=== PATIENT | male | born 1960 | race Caucasian/White ===

== ENCOUNTER 2020-12-02 09:32 | Emergency (ER) | payer OTHER ==
[2020-12-02] MEDS ORDERED: Ketorolac 60 MG/2 ML SDV IM ONE (10:08)
--- NOTE | 2020-12-02 10:11 | EDM.PDOC ---
ED HPI GENERAL MEDICAL PROBLEM - General Chief Complaint: Flank Pain Stated Complaint: PAIN IN ABDOMEN Time Seen by Provider: 12/02/20 10:04 Source of Information: Reports: Patient, Family, RN Notes Reviewed History Limitations: Reports: No Limitations - History of Present Illness INITIAL COMMENTS - FREE TEXT/NARRATIVE: 60-year-old gentleman presents emergency department day complaint of left flank pain, he states it started 4 days ago initially in his back was very intense but now has progressed down into his left flank there is a bit of waxing and waning does get very sharp at times no nausea no vomiting no other GI symptomology is no chest pain no shortness of breath does have a history of nephrolithiasis as well as testicular cancer Left Flank Pain Score (Numeric/FACES): 10 - Related Data Allergies Allergy/AdvReac Type Severity Reaction Status Date / Time No Known Allergies Allergy Verified 12/02/20 09:54 Home Meds: Home Meds Gabapentin [Neurontin] 1,200 mg PO BEDTIME 12/02/20 [History] Gabapentin [Neurontin] 600 mg PO BID 12/02/20 [History] Hydrocodone/Acetaminophen [Hydrocodon-Acetaminophen 5-325] 1 each PO Q4HR 12/02/20 [History] Hydrocodone/Acetaminophen [Hydrocodon-Acetaminophen 5-325] 1 each PO TID PRN #10 tablet 12/02/20 [Rx] Ketorolac [Toradol] 10 mg PO TID PRN #20 tab 12/02/20 [Rx] Past Medical History Genitourinary History: Reports: Renal Calculus Musculoskeletal History: Reports: Fracture Hematologic History: Reports: None Immunologic History: Reports: None Oncologic (Cancer) History: Reports: Other (See Below) Other Oncologic History: testicle Dermatologic History: Reports: None - Infectious Disease History Infectious Disease History: Reports: Chicken Pox - Past Surgical History HEENT Surgical History: Reports: None GI Surgical History: Reports: Other (See Below) Other GI Surgeries/Procedures: teratatoma Male Surgical History: Reports: Other (See Below) Other Male Surgeries/Procedures: Right testicular cancer with testicle removal Neurological Surgical History: Reports: Lumbar Spine Social & Family History - Tobacco Use Tobacco Use Status *Q: Former Tobacco User Used Tobacco, but Quit: Yes Month/Year Tobacco Last Used: 2004 - Caffeine Use Caffeine Use: Reports: Coffee - Recreational Drug Use Recreational Drug Use: No ED ROS GENERAL - Review of Systems Review Of Systems: See Below Constitutional: Reports: No Symptoms Respiratory: Reports: Other (Hurts to take a deep breath) Cardiovascular: Reports: No Symptoms GI/Abdominal: Reports: Abdominal Pain. Denies: Nausea, Vomiting : Reports: Flank Pain (Left flank) ED EXAM, GI/ABD - Physical Exam Exam: See Below Exam Limited By: No Limitations General Appearance: Alert, WD/WN, No Apparent Distress Respiratory/Chest: No Respiratory Distress, Lungs Clear, Normal Breath Sounds, No Accessory Muscle Use, Chest Non-Tender Cardiovascular: Regular Rate, Rhythm, No Murmur GI/Abdominal Exam: Soft, Tender (Tender along the left flank) Back Exam: CVA Tenderness (L) Course - Vital Signs Last Recorded V/S: Last Vital Signs Temp 97.9 F 12/02/20 09:45 Pulse 71 12/02/20 10:46 Resp 16 12/02/20 10:46 BP 144/70 H 12/02/20 10:46 Pulse Ox 96 12/02/20 10:46 - Orders/Labs/Meds Labs: Laboratory Tests 12/02/20 Range/Units 10:07 Urine Color Yellow (YELLOW) Urine Appearance Clear (CLEAR) Urine pH 6.0 (5.0-8.0) Ur Specific [place] 1.025 (1.008-1.030) Urine Protein Negative (NEGATIVE) mg/dL Urine Glucose (UA) Negative (NEGATIVE) mg/dL Urine Ketones Negative (NEGATIVE) mg/dL Urine Occult Blood Trace-lysed H (NEGATIVE) Urine Nitrite Negative (NEGATIVE) Urine Bilirubin Negative (NEGATIVE) Urine Urobilinogen 0.2 (0.2-1.0) EU/dL Ur Leukocyte Esterase Negative (NEGATIVE) Urine RBC 0-5 (0-5) Urine WBC 0-5 (0-5) Ur Epithelial Cells Not seen Amorphous Sediment Rare Urine Bacteria Rare Urine Mucus Not seen Meds: Medications Discontinued Medications Generic Name Dose Route Start Last Admin Trade Name Freq PRN Reason Stop Dose Admin Ketorolac Tromethamine 60 mg 12/02/20 10:08 12/02/20 10:14 Ketorolac 60 Mg/2 Ml Sdv IM 12/02/20 10:09 60 mg ONETIME ONE Administration Departure - Departure Time of Disposition: 11:49 Disposition: Home, Self-Care 01 Condition: Fair Clinical Impression: Nephrolithiasis - Discharge Information Prescriptions: Hydrocodone/Acetaminophen [Hydrocodon-Acetaminophen 5-325] 1 each PO TID PRN #10 tablet PRN Reason: Pain Ketorolac [Toradol] 10 mg PO TID PRN #20 tab PRN Reason: Pain Instructions: Kidney Stones Referrals: PCP,None [Primary Care Provider] - Forms: ED Department Discharge Additional Instructions: Use ketorolac for your baseline pain control use hydrocodone for breakthrough pain, please contact your primary care at [facility] today and set up a consultation with urology for stone removal in the future your Toradol has been faxed to [facility] the narcotic is in prescription form call return to the emergency department worsening of symptoms Sepsis Event Note (ED) - Evaluation Sepsis Screening Result: No Definite Risk - Focused Exam Vital Signs: Vital Signs Temp Pulse Resp BP Pulse Ox 12/02/20 10:46 71 16 144/70 H 96 12/02/20 09:45 97.9 F 72 16 183/83 H 97 - Assessment/Plan Plan: Assessment Acuity = acute Site and laterality = 9 mm obstructing stone left ureter Etiology = unknown Manifestations = pain Location of injury = Home Lab values = CT scan describes the stone above Plan I did review CT scan results with him provided a copy of the report as well as the CD disc of the images he is going to contact his primary care at [facility] and get a consultation with urology set up with her in the [facility] provided hydrocodone 5/325 1 tab p.o. 3 times daily as needed 1210 in combination with ketorolac 10 mg 1 tab p.o. 3 times daily as needed total #20 This note was dictated using [employer] voice recognition software please call with any questions on syntax or grammar.
--- NOTE | 2020-12-02 11:28 | CRLCT ---
For Patients: As a result of the Century Cures Act, medical imaging exams and procedure reports are released immediately into your electronic medical record. You may view this report before your referring provider. If you have questions, please contact your health care provider. INDICATION: Left flank pain. Hematuria. History of testicular cancer in 2004. COMPARISON: None. TECHNIQUE: CT abdomen and pelvis without contrast. FINDINGS: Linear right basilar subsegmental atelectasis/scarring. Faint tree-in-bud opacities in the left lower lobe could be due to infectious/inflammatory bronchiolitis. Hepatic steatosis and hepatomegaly. Calcified granulomas in the liver and spleen. Noncontrast evaluation of the gallbladder, pancreas and adrenal glands are unremarkable. Obstructing left calculus at the UPJ with moderate left hydronephrosis and perinephric stranding. The calculus measures 9 mm (series 2, image 1 or 2). Right kidney is unremarkable. Abdominal aorta is normal in caliber. Hernia repair changes. Prostate enlargement. Bladder is nondistended. No free fluid or free air. Diverticulosis. Negative appendix. Surgical clips in the retroperitoneum likely from prior lymph node dissection. No evidence of bowel obstruction or inflammation. Change of corpectomy with lateral metallic strut in the lumbar spine. L5 vertebra body hemangioma. IMPRESSION: 1. Obstructing left renal calculus at the UPJ with moderate left hydronephrosis and perinephric stranding. 2. Hepatic steatosis and hepatomegaly. 3. Faint tree-in-bud opacities in the left lower lobe could be infectious/inflammatory bronchiolitis. 4. Diverticulosis. 5. Postsurgical changes in the lumbar spine. 6. Prostate enlargement. Please note that all CT scans at this facility use dose modulation, iterative reconstruction, and/or weight-based dosing when appropriate to reduce radiation dose to as low as reasonably achievable. Dictated by Vince Chery MD @ 12/02/2020 11:27:[address] Vince Chery @ Dec 02 2020 11:27AM
== END 2020-12-02 12:23 | disposition home or self-care (01) ==
LOC: JP.ED 09:32
DX: N13.2 Hydronephrosis with renal and ureteral calculous obstruction (principal); Z87.891 Personal history of nicotine dependence; Z79.899 Other long term (current) drug therapy
CPT/HCPCS: 74176; 81001; 96372; 99284; J1885

== ENCOUNTER 2021-11-03 07:14 | Emergency (ER) | payer OTHER | END 2021-11-03 08:42 | disposition home or self-care (01) | LOC: JP.ED 07:14 | DX: G89.29 Other chronic pain (principal); S91.302A Unspecified open wound, left foot, initial encounter; I10 Essential (primary) hypertension; Z79.899 Other long term (current) drug therapy; X58.XXXA Exposure to other specified factors, initial encounter | CPT/HCPCS: 99282; 99283 ==